=== PATIENT | female | born 1975 | race Hispanic/Latino ===

== ENCOUNTER 2018-12-02 18:37 | Emergency (ER) | payer BC, SELFPAY ==
[2018-12-02] MEDS ORDERED: Lidocaine 1% w/Epinephrine 1:100K 20 ML VIAL ONE (22:42)
== END 2018-12-02 23:27 | disposition home or self-care (01) ==
LOC: ERS 18:37
DX: L02.212 Cutaneous abscess of back [any part, except buttock and flank] (principal); E66.9 Obesity, unspecified; I10 Essential (primary) hypertension; Z79.899 Other long term (current) drug therapy
CPT/HCPCS: 10061; 87070; 87077; 87186; 87205; J2001

== ENCOUNTER 2018-12-25 03:06 | Inpatient (IN) | payer SELFPAY ==
[2018-12-25 03:45] LABS: Base Excess-Venous -4.9 mmol/L (-2.0 to 3.0); CO2 Tension (PvCO2) 41.1 mmHg (40.0-50.0); Calcium, Ionized 1.03 mmol/L (See Comments:); Chloride 87 mmol/L (98-107); Hemoglobin - Calc 12.8 g/dL (12.0-16.0); O2 Tension (PvO2) 48.4 mmHg (35.0-45.0); Potassium 3.9 mmol/L (3.5-5.1); Sodium 120 mmol/L (138-145); T. Carbon Dioxide 22.3 mmol/L (22.0-28.0); pH (Venous) 7.317 (7.320-7.430); vO2 Saturation-calc 80.4 % (60.0-85.0)
[2018-12-25] MEDS ORDERED: Ondansetron PF 4 MG/2 ML Vial ONE (04:09)
[2018-12-25 04:11] LABS: ALT (SGPT) 21 U/L (8-55); AST (SGOT) 24 U/L (5-34); Albumin 2.5 g/dL (3.5-5.0); Alkaline Phosphatase 107 U/L (40-150); Anion Gap 21 mmol/L (10-20); BUN (Urea Nitrogen) 41 mg/dL (7.0-18.7); Bilirubin, Total 0.6 mg/dL (0.2-1.2); Calc. Creatinine Clearance 0 mL/min (70-130); Calcium 7.7 mg/dL (7.8-10.44); Carbon Dioxide 21 mmol/L (22-29); Chloride 85 mmol/L (98-107); Estimated GFR-MDRD 27; Globulin 2.6 g/dL (2.4-3.5); Potassium 4.3 mmol/L (3.5-5.1); Protein, Total 5.1 g/dL (6.0-8.3); Sodium 123 mmol/L (136-145)
[2018-12-25 04:13] LABS: Band 39 % (5-11); Hemoglobin 11.6 g/dL (12.0-16.0); Lymphocytes 2 % (21-51); MDiff Complete? YES; Mean Corpuscular HGB CONC 32.9 g/dL (32.0-36.0); Mean Corpuscular Hemoglobin 29.7 pg (27.0-31.0); Mean Corpuscular Volume 90.3 fL (78.0-98.0); Mean Platelet Volume 8.8 fL (7.4-10.4); Metamyelocyte 1 % (0-0); Monocytes 2 % (0-10); Neutrophil 56 % (42-75); Platelet Count 115 thou/uL (130-400); Platelet Morphology Comment Appears Decreased; RBC Distribution Width 11.6 % (11.5-14.5); Red Blood Cell (RBC) Count 3.91 mill/uL (4.20-5.40); White Blood Cell (WBC) Count 11.3 thou/uL (4.8-10.8)
[2018-12-25 04:14] LABS: Glucose 682 mg/dL (70-105)
[2018-12-25] MEDS ORDERED: Calcium Gluc 4.6 MEQ/10 ML (100 MG/ML) ONE ×2 (04:27→04:43)
[2018-12-25 06:02] LABS: Phosphorus 3.2 mg/dL (2.3-4.7)
[2018-12-25 06:04] LABS: Magnesium 1.5 mg/dL (1.6-2.6)
[2018-12-25] MEDS ORDERED: Magnesium 2 GM/50 ML BAG (IN WATER) ONE (06:56)
[2018-12-25] MEDS ORDERED: HUMULIN R 100 UNITS in Sodium Chloride 0.9% 100 ML IVPB SCH ×2 (07:30→09:30)
--- NOTE | 2018-12-25 08:32 | RAD ---
CHEST 1 VIEW: INDICATION: Dizziness and vomiting. COMPARISON: Prior exam dated 04/19/2004. IMPRESSION: There is mild cardiomegaly and pulmonary vascular congestion. No consolidation or pleural effusion i s evident. No pneumothorax. Cardiomegaly with mild pulmonary vascular congestion. POS: BH
[2018-12-25] MEDS ORDERED: Benzonatate 100 MG CAP PO PRN (09:00)
[2018-12-25] MEDS ORDERED: Acetaminophen 325 MG TAB PO PRN (09:00)
[2018-12-25] MEDS ORDERED: Artificial Tears 18 DROP/0.9 ML EA EYE PRN (09:00)
[2018-12-25] MEDS ORDERED: Calcium Carbonate 500 MG ChewTAB PO PRN (09:00)
[2018-12-25] MEDS ORDERED: Bisacodyl 5 MG TAB PO PRN (09:00)
[2018-12-25] MEDS ORDERED: Bisacodyl 10 MG SUPP PR PRN (09:00)
[2018-12-25 09:02] VITALS: BMI 53.0
[2018-12-25 09:09] LABS: Anion Gap 15 mmol/L (10-20); BUN (Urea Nitrogen) 42 mg/dL (7.0-18.7); Calc. Creatinine Clearance 73 mL/min (70-130); Calcium 8.2 mg/dL (7.8-10.44); Carbon Dioxide 22 mmol/L (22-29); Chloride 87 mmol/L (98-107); Estimated GFR-MDRD 25; Potassium 4.8 mmol/L (3.5-5.1)
[2018-12-25 09:17] LABS: Glucose 678 mg/dL (70-105); Sodium 119 mmol/L (136-145)
[2018-12-25] MEDS ORDERED: Sodium Chloride 0.9% 1,000 ML IV PRN ×4 (09:30)
[2018-12-25] MEDS ORDERED: Ondansetron PF 4 MG/2 ML Vial IVP PRN (09:30)
[2018-12-25] MEDS ORDERED: hydrALAZINE 20 MG/ML VIAL SLOW IVP PRN (09:30)
[2018-12-25] MEDS ORDERED: HYDROcodone/Acetaminophen 5/325 mg Tablet PO PRN (09:30)
[2018-12-25] MEDS ORDERED: Loratadine 10 MG TAB PO PRN (09:30)
[2018-12-25] MEDS ORDERED: Ondansetron ODT 4 MG TAB PO PRN (09:30)
[2018-12-25] MEDS ORDERED: Famotidine/PF 20 mg/2ml Vial SLOW IVP SCH (09:30)
[2018-12-25] MEDS ORDERED: Diabetic Tussin 200 MG/10 ML UDCUP PO PRN (09:30)
[2018-12-25] MEDS ORDERED: Zolpidem Tartrate 5 MG TAB PO PRN (09:30)
[2018-12-25] MEDS ORDERED: Senokot S 8.6-50 MG TAB PO PRN (09:30)
[2018-12-25] MEDS ORDERED: NS 0.9% w/ 20 MEQ KCL 1,000 ML IV PRN (09:30)
[2018-12-25] MEDS ORDERED: Metoclopramide HCl 10 MG/2 ML VIAL IVP PRN (09:30)
[2018-12-25] MEDS ORDERED: Eucerin (Mineral Oil/Petrolatum,White) 30 gm Jar TOP PRN (09:30)
[2018-12-25] MEDS ORDERED: Cepastat Lozenges 1 LOZ PO PRN (09:30)
[2018-12-25] MEDS ORDERED: D5 1/2 NS w/20 mEq KCL 1,000 ML IV PRN (09:30)
[2018-12-25] MEDS ORDERED: Dextrose 5 %-0.45 % NaCl 1,000 ML IV PRN (09:30)
[2018-12-25] MEDS ORDERED: Sodium Chloride 0.65% Nasal 44 ML BOT EA NARE PRN (09:30)
[2018-12-25] MEDS ORDERED: Magnesium Sulfate 3 GM in Sodium Chloride 0.9% 100 ML IVPB SCH (10:00)
[2018-12-25] MEDS ORDERED: Dextrose 5% in Water 1,000 ML IV PRN ×2 (10:05→16:22)
[2018-12-25] MEDS ORDERED: Dextrose 50% Abboject 50 ML SYRINGE IVP PRN (10:05)
[2018-12-25] MEDS: Famotidine 20 MG TAB PO SCH (10:21)
[2018-12-25] MEDS: Aspirin Chewable 81 MG TAB PO SCH (10:21)
[2018-12-25] MEDS: cefTRIAXone\\ROCEPHIN 1 GM in Sodium Chloride 0.9% 100 ML IVPB SCH (10:22)
[2018-12-25] MEDS: Enoxaparin Sodium 30 MG/0.3 ML SYRINGE SC SCH (10:25)
[2018-12-25 10:45] LABS: CKMB 2.7 ng/mL (0-6.6)
[2018-12-25] MEDS: NS 0.9% w/ 20 MEQ KCL 1,000 ML IV PRN ×2 (10:54→13:06)
--- NOTE | 2018-12-25 13:05 | HP ---
PRIMARY CARE PHYSICIAN: [facility]. REASON FOR ADMISSION: hyperglycemia with DKA, acute kidney failure. HISTORY OF PRESENT ILLNESS: A 43-year-old female, who has underlying morbid obesity. She has diabetes, type 2. She lost her insurance, and she was not taking any medication for about a month. The patient reports that 3 days ago, she ate some old food, which she made it, but it was pretty much old, and after eating that foot, she noticed that she was having nausea, vomiting, abdominal discomfort, and 1-day diarrhea, which was liquidy. She did not have any blood in her stool. She did not have any fever or chills, but she was feeling weak and dizzy. She rested at home. Today, the patient was feeling more weak, fatigued, and tired, and that is why she decided to come to emergency room for evaluation. The patient reports that for last 3 days, she was not able to eat, but she was only drinking water. In the emergency room today, she was evaluated, and she was found with hyperglycemia. She had bandemia. She has pseudohyponatremia, and she has elevated troponin. This patient denies any chest pain or palpitation. She denies any UTI symptoms. She denies any fever, chills, or sore throat. She denies any flu-like illness. She denies any recent antibiotic exposure. In the emergency room, the patient was given fluid, and the patient was started on insulin drip. Subsequently, the patient was admitted to [facility]. In the emergency room, the patient was having difficulty with IV access. PAST MEDICAL HISTORY: Morbid obesity and diabetes, type 2. PAST SURGICAL HISTORY: Dilatation and curettage x2. PAST PSYCHIATRIC HISTORY: Reviewed and negative. SOCIAL HISTORY: The patient currently denies any tobacco, alcohol, or illicit drug abuse. She reports that she recently started working and she got job. She lives at home by herself. FAMILY HISTORY: Diabetes runs among several family members. ALLERGIES: NO KNOWN DRUG ALLERGIES. CURRENT HOME MEDICATIONS: The patient is not taking any prescribed or non-prescribed medication. EMERGENCY ROOM COURSE: The patient is given IV fluid 2 L, Zofran 4 mg, calcium gluconate 1 mg, magnesium sulfate 2 g, and insulin drip was started. REVIEW OF SYSTEMS: CONSTITUTIONAL: Negative for weight loss or gain, ability to conduct usual activities. SKIN: Negative for rash, itching. EYES: Negative for double vision, pain. ENT/MOUTH: Negative for nose bleeding, neck stiffness, pain, tenderness. CARDIOVASCULAR: Negative for palpitations, dyspnea on exertion, orthopnea. RESPIRATORY: Negative for shortness of breath, wheezing, cough, hemoptysis, fever or night sweats. GASTROINTESTINAL: Negative for poor appetite, abdominal pain, heartburn, nausea , vomiting, constipation, or diarrhea. GENITOURINARY: Negative for urgency, frequency, dysuria, nocturia. MUSCULOSKELETAL: Negative for pain, swelling. NEUROLOGIC/PSYCHIATRIC: Negative for anxiety, depression. ALLERGY/IMMUNOLOGIC: Negative for skin rash, bleeding tendency. PHYSICAL EXAMINATION: VITAL SIGNS: On arrival, blood pressure 92/56, pulse 88, respiratory rate 22, temperature 98.4, saturation 99% on room air. Weight 138 kg. GENERAL: The patient is currently alert, awake, morbidly obese, in no obvious acute distress. HEENT: Head, normocephalic and atraumatic. Eyes; pupils are round and reactive to light. Extraocular muscle is intact. ENT; dry-appearing mucous membrane. No oral lesion. No pharyngeal erythema. No exudate. NECK: Supple. No thyromegaly. No carotid bruit. No jugular venous distention. LUNGS: Clear to auscultation without any rhonchi or rales. CARDIAC: S1 and S2, regular. No murmur. No gallop. No rub. ABDOMEN: Morbid obesity limiting examination, but no gross tenderness noted. No organomegaly. No mass. No suprapubic tenderness. BACK: Unremarkable. No CVA tenderness. EXTREMITIES: Upper extremities; passive movement of all joints is normal. Lower extremities; trace lower extremity edema noted. No calf tenderness. Good distal pulsation. SKIN: No skin rash. HEMATOLOGICAL SYSTEM: No lymphadenopathy. NEUROLOGIC: Grossly nonfocal examination. She moves all 4 limbs. Plantar bilateral flexor. SIGNIFICANT LABORATORY DATA: CBC; WBC 11.3, hemoglobin 11.6, platelet 115, bandemia. VBG; pH 7.31, CO2 of 41.1, bicarb 21.0. BMP; sodium 123, potassium 4.3, chloride 85, BUN 41, creatinine 2.01, glucose 682, anion gap 21, calcium 7.7, magnesium 1.5, phosphorus 3.2. LFT; AST 24, ALT 21, alkaline phosphatase 107, albumin 2.5, lipase 5. CK-MB 2.0, troponin 0.055. Beta-hydroxybutyrate 3.78. ASSESSMENT AND PLAN: 1. Diabetic ketoacidosis. This patient has elevated serum ketones along with elevated anion gap and metabolic acidosis consistent with diabetic ketoacidosis. This patient was not taking any insulin for about 1 month and her recent episode of gastroenteritis precipitated her diabetic ketoacidosis. She will be admitted to [facility], and she will be treated with diabetic ketoacidosis protocol treatment. We will start insulin drip. Monitor Accu-Chek every hourly until blood sugar goes below 250. At that point, we will change IV fluid from NS to dextrose with NS and continue insulin drip until serum ketones disappear. We will replace electrolytes accordingly. While in the hospital, we will monitor BMP and serum ketones every 4 hourly. When anion gap resolves and blood sugar better controlled, at that point, we will start insulin long-acting and overlap with insulin drip, and subsequently then, we will consider transfer to medical floor. We will adjust insulin dose while in the hospital. We will check hemoglobin A1c. We will repeat labs tomorrow. We will provide diabetic diet. Dietitian will be consulted. This patient will need medication assistance with Resource Team. 2. Hyponatremia. This patient has pseudohyponatremia. When corrected with blood sugar, her sodium is 129 to 130. Her hyponatremia is also related with osmotic diuresis and her recent nausea, vomiting, diarrhea, and only free water intake. We will monitor BMP and address appropriately. We will check TSH, random cortisol , and osmolality. 3. Acute kidney failure, likely due to prerenal etiology. We will continue with IV fluid and will repeat BMP tomorrow. We will avoid nephrotoxins agent. 4. Abnormal electrolytes. The patient has pseudohyponatremia. She has hypomagnesemia, that we will replace with magnesium sulfate. 5. Elevated troponin, likely due to demand ischemia. We will do serial cardiac enzyme x3. We will start aspirin 81 mg p.o. daily, and we will check lipid profile tomorrow. 6. Hypoalbuminemia. We will check random protein/creatinine ratio to rule out nephrotic syndrome. 7. Pancytopenia with bandemia. We will repeat CBC tomorrow. We will likely relate it with stress response or we will start empirically Rocephin 1 g q.24 hours. We will check urinalysis and urine culture. 8. Morbid obesity with BMI 53. Dietary education given. Weight loss education given. 9. Deep venous thrombosis prophylaxis. Lovenox 30 mg subcutaneously daily. 10. Gastrointestinal prophylaxis. Pepcid 20 mg p.o. or IV b.i.d. CODE STATUS: The patient is full code. The patient does not have any surrogate decision maker. DISPOSITION PLAN: Based on clinical course, we are expecting the patient's stay in hospital more than 2 midnights. Plan of care discussed with the patient in detail. Job ID: [id number] [facility]
[2018-12-25 13:32] LABS: Bilirubin Moderate (Negative); Blood, Urine Moderate (Negative); Clarity TURBID (Clear); Glucose, Urine (Dipstick) 500 mg/dL (Negative); Leukocyte Negative (Negative); Nitrite Negative (Negative); Protein, Urine (Dipstick) 300 mg/dL (Neg-Trace); Specific Gravity, Urine 1.019 (1.002-1.036)
[2018-12-25 13:36] LABS: Bacteria/HPF 1+ HPF (None Seen); Pathc Cast-AUWi Flag 1.63 (0-2.49)
[2018-12-25 13:57] LABS: Anion Gap 16 mmol/L (10-20); BUN (Urea Nitrogen) 42 mg/dL (7.0-18.7); Calc. Creatinine Clearance 80 mL/min (70-130); Calcium 8.2 mg/dL (7.8-10.44); Carbon Dioxide 21 mmol/L (22-29); Chloride 94 mmol/L (98-107); Estimated GFR-MDRD 28; Glucose 224 mg/dL (70-105); Potassium 4.4 mmol/L (3.5-5.1); Sodium 127 mmol/L (136-145)
[2018-12-25 14:07] LABS: Hyaline Casts/LPF 0-3 HYALINE CAST LPF (0-3 Hyaline)
[2018-12-25] MEDS ORDERED: Dextrose 5 % And 0.9 % NaCl 1,000 ML IV SCH (16:15)
[2018-12-25] MEDS ORDERED: Insulin Glargine 20 UNITS in Pre-Filled Syringe 1 EACH SC SCH (16:30)
--- NOTE | 2018-12-25 16:59 | CON ---
DATE OF CONSULTATION: 12/25/2018 SERVICE: Pulmonary Medicine. REASON FOR CONSULTATION: ICU patient. HISTORY OF PRESENT ILLNESS: The patient is a 43-year-old morbidly obese white female, who was in her usual state of health until Sunday. At that time, she reheated 3-day-old rice and meat. Roughly an hour and a half later, she had violent nausea and vomiting. A couple of hours later, she was having profuse frequent watery diarrhea. Ultimately, she got lightheaded and weak and presented to the emergency department. She was discovered to have elevated blood sugars. She has had diabetes for quite some time, but has only been on oral medications for this. Since being in the hospital, she has been put on an insulin drip and adequately fluid resuscitated. Her dizziness seems to be improving, but her blood pressures remain marginal. Her heart rate has settled down very nicely. She has not had any high fevers, chest pain, cough, sputum production, or dyspnea on exertion beyond baseline. Multiple features consistent with obstructive sleep apnea, which may warrant outpatient investigation. PAST MEDICAL HISTORY: 1. Type 2 diabetes mellitus. 2. Morbid obesity. PAST SURGICAL HISTORY: D and C x2. SOCIAL HISTORY: Negative for alcohol, tobacco, or illicit drug use. She has no exposure to chemicals, dust, asbestos, or tuberculosis. FAMILY HISTORY: Noncontributory. ALLERGIES: NO KNOWN DRUG ALLERGIES. MEDICATIONS: List of her inpatient medications was reviewed. No specific updates were made at this time. REVIEW OF SYSTEMS: General, head, ears, eyes, nose, throat, cardiovascular, respiratory, GI, , musculoskeletal, neurologic, and skin are negative except as mentioned in the HPI. PHYSICAL EXAMINATION: VITAL SIGNS: Afebrile, pulse 90, blood pressure 95/61, respirations 21, and saturation 93% on room air. GENERAL: The patient is awake and alert, in no apparent distress. LUNGS: Excellent air entry. Dependent crackles are minimal. No prolonged expiratory phase or wheezing is appreciated. HEART: Normal rate and regular. ABDOMEN: Soft, nontender, and nondistended. Bowel sounds are positive. MUSCULOSKELETAL: No cyanosis or clubbing. There is 1 to 2+ pitting in the bilateral lower extremities. NEUROLOGIC: Grossly nonfocal. LABORATORY DATA: WBC 11.3, hemoglobin 11.6, platelets 115,000. Band count is 39% on top of 56% neutrophils. A pH 7.317, pCO2 of 41. Creatinine 1.96, which is gently downtrending from 2.15. This is well above her baseline that we are aware of from a year ago of 0.7. BUN 42, bicarb 21, chloride 94. Sodium 127 and gently up-trending. Blood sugar ranges from 152 to greater than 550 on multiple sticks. Urine protein is 300, glucose 500, moderate amount of blood is present with both red blood cells and white blood cells identified. That being said, urine bacteria is only 1+. Beta-hydroxybutyrate is 0.20. IMAGING STUDIES: Chest x-ray demonstrates cardiomegaly, pulmonary vascular congestion. Low lung volumes are present, which accentuate our interstitial markings. There is an underpenetrated film. That being said to get the sense that the patient has an enlarged heart. Cephalization is also noted. ASSESSMENT: 1. Acute hypoxic respiratory failure. 2. Starvation ketosis. 3. Type 2 diabetes mellitus. 4. Gastroenteritis. 5. Hyponatremia. 6. Acute kidney injury. DISCUSSION AND PLAN: Echocardiogram will be performed. We will drop her IV fluids down to maintenance doses. Her anion gap has improved and her bicarb is also improved. As such, we can likely deescalate her insulin drip. Cultures will be followed and empiric antibiotics will be continued for the time being. Pulmonary/ Critical Care will continue to follow along. My suspicion is that she will be stable for transition out of the IMCU in the morning. 70 minutes have been devoted to this patient in various activities. I personally reviewed all imaging studies and laboratory data noted within this document. For fifty percent of this time, I was interacting with the patient at the bedside or coordinating care with the care team. For the remainder of the time I was immediately available to the patient in the hospital unit. Job ID: [id number] [facility]
[2018-12-25] MEDS: Dextrose 5 % And 0.9 % NaCl 1,000 ML IV SCH (17:06)
[2018-12-25] MEDS: HumaLOG 300 UNITS/3 ML VIAL SC SCH (17:08)
[2018-12-25] MEDS: HumaLOG 300 UNITS/3 ML VIAL SC PRN (20:11)
[2018-12-25] MEDS: Piperacillin/Tazobactam 4.5 GM in Sodium Chloride 0.9% 100 ML IVPB SCH (23:31)
[2018-12-26 04:52] LABS: Hemoglobin A1c 14.8 % (4.0-6.0)
[2018-12-26 05:10] LABS: ALT (SGPT) 28 U/L (8-55); AST (SGOT) 36 U/L (5-34); Albumin 2.3 g/dL (3.5-5.0); Alkaline Phosphatase 156 U/L (40-150); Anion Gap 14 mmol/L (10-20); BUN (Urea Nitrogen) 48 mg/dL (7.0-18.7); Bilirubin, Total 0.5 mg/dL (0.2-1.2); Calc. Creatinine Clearance 77 mL/min (70-130); Calcium 8.1 mg/dL (7.8-10.44); Carbon Dioxide 21 mmol/L (22-29); Cardiac Risk 12.5 (Less than 4.5); Chloride 95 mmol/L (98-107); Cholesterol 162 mg/dl (< 200 Desired); Estimated GFR-MDRD 26; Globulin 3.4 g/dL (2.4-3.5); Glucose 251 mg/dL (70-105); HDL Cholesterol 13 mg/dL (>60 Neg Risk); LDL Cholesterol, Calculated 88 mg/dL; Magnesium 2.5 mg/dL (1.6-2.6); Phosphorus 4.3 mg/dL (2.3-4.7); Potassium 4.3 mmol/L (3.5-5.1); Protein, Total 5.7 g/dL (6.0-8.3); Sodium 126 mmol/L (136-145); Triglycerides 307 mg/dL (Less than 150)
[2018-12-26 05:19] LABS: Band 8 % (5-11); Hemoglobin 11.3 g/dL (12.0-16.0); Hypochromia SLIGHT = 6-15 cells (100X) (0-5/hpf); Lymphocytes 5 % (21-51); MDiff Complete? YES; Mean Corpuscular HGB CONC 32.3 g/dL (32.0-36.0); Mean Corpuscular Hemoglobin 29.7 pg (27.0-31.0); Mean Corpuscular Volume 92.1 fL (78.0-98.0); Mean Platelet Volume 9.2 fL (7.4-10.4); Monocytes 1 % (0-10); Neutrophil 86 % (42-75); Nucleated RBC 1 % (0); Platelet Count 111 thou/uL (130-400); Platelet Morphology Comment Appears Adequate; RBC Distribution Width 12.1 % (11.5-14.5); Red Blood Cell (RBC) Count 3.79 mill/uL (4.20-5.40); White Blood Cell (WBC) Count 9.5 thou/uL (4.8-10.8)
[2018-12-26] MEDS: HumaLOG 300 UNITS/3 ML VIAL SC PRN ×3 (06:43→16:34)
[2018-12-26] MEDS: HumaLOG 300 UNITS/3 ML VIAL SC SCH ×3 (07:05→16:34)
[2018-12-26] MEDS: Dextrose 5 % And 0.9 % NaCl 1,000 ML IV SCH (07:06)
[2018-12-26] MEDS: Famotidine 20 MG TAB PO SCH (08:57)
[2018-12-26] MEDS: Aspirin Chewable 81 MG TAB PO SCH (09:01)
[2018-12-26] MEDS: Enoxaparin Sodium 30 MG/0.3 ML SYRINGE SC SCH (09:01)
[2018-12-26] MEDS: cefTRIAXone\\ROCEPHIN 1 GM in Sodium Chloride 0.9% 100 ML IVPB SCH (09:01)
[2018-12-26] MEDS: Insulin Glargine 20 UNITS in Pre-Filled Syringe 1 EACH SC SCH (09:01)
[2018-12-26] MEDS: Piperacillin/Tazobactam 4.5 GM in Sodium Chloride 0.9% 100 ML IVPB SCH (10:31)
--- NOTE | 2018-12-26 11:20 | PDOC.PN ---
- Subjective Encounter Start Date: 12/26/18 Encounter Start Time: 09:30 -: old records requested/rev Patient seen and examined. No new complaints. No overnight events - Objective Resuscitation Status - Order Detail: 12/25/18 06:43 Resuscitation Status Routine Resuscitation Status: FULL: Full Resuscitation MAR Reviewed: Yes Vital Signs & Weight: Vital Signs (12 hours) Temp Pulse Ox 12/26/18 10:36 96.6 F L 12/26/18 07:17 100 12/26/18 07:11 97.9 F 12/26/18 04:12 98.5 F 12/26/18 00:14 98.6 F 12/26/18 00:00 93 L Weight Weight 309 lb 1 oz Most Recent Monitor Data Heart Rate from ECG 78 NIBP 124/83 NIBP BP-Mean 96 Respiration from ECG 23 SpO2 100 I&O: 12/25/18 12/26/18 12/27/18 06:59 06:59 06:59 Intake Total 5564.7 Output Total 350 Balance 5214.7 Result Diagrams: 12/26/18 03:59 12/26/18 03:59 Additional Labs: Accuchecks 12/26/18 12/26/18 12/25/18 10:25 06:10 19:15 POC Glucose 277 H 295 H 240 H 12/25/18 12/25/18 12/25/18 16:08 15:07 14:02 POC Glucose 137 H 152 H 197 H 12/25/18 12/25/18 12/25/18 13:01 12:01 08:47 POC Glucose 253 H 388 H Greater than 550 H* 12/25/18 12/25/18 03:25 03:23 POC Glucose Greater than 550 H* Greater than 550 H* EKG Reviewed by me: Yes Phys Exam - Physical Examination Constitutional: NAD HEENT: PERRLA, moist MMs, sclera anicteric Neck: no JVD, supple Respiratory: no wheezing, no rales, no rhonchi Cardiovascular: RRR, no significant murmur, no rub Gastrointestinal: soft, non-tender, no distention, positive bowel sounds morbid obesity+ Musculoskeletal: pulses present, edema present Neurological: non-focal, normal sensation Lymphatic: no nodes Psychiatric: normal affect, A&O x 3 Skin: no rash, normal turgor Dx/Plan (1) Abnormal blood electrolyte level Code(s): E87.8 - OT DISORDERS OF ELECTROLYTE AND FLUID BALANCE, NEC Status: Acute (2) Acute kidney failure Status: Acute (3) Bacteremia, escherichia coli Code(s): R78.81 - BACTEREMIA Status: Acute (4) Bandemia Code(s): D72.825 - BANDEMIA Status: Acute (5) DKA (diabetic ketoacidoses) Code(s): E13.10 - OTH DIABETES MELLITUS WITH KETOACIDOSIS WITHOUT COMA Status : Acute (6) Sepsis with acute organ dysfunction Code(s): A41.9 - SEPSIS, UNSPECIFIED ORGANISM; R65.20 - SEVERE SEPSIS WITHOUT SEPTIC SHOCK Status: Acute (7) Thrombocytopenia Code(s): D69.6 - THROMBOCYTOPENIA, UNSPECIFIED Status: Acute (8) Anemia, normocytic normochromic Code(s): D64.9 - ANEMIA, UNSPECIFIED Status: Chronic (9) Diabetes type 2, uncontrolled Code(s): E11.65 - TYPE 2 DIABETES MELLITUS WITH HYPERGLYCEMIA Status: Chronic (10) Morbid obesity with BMI of 50.0-59.9, adult Code(s): E66.01 - MORBID (SEVERE) OBESITY DUE TO EXCESS CALORIES; Z68.43 - BODY MASS INDEX (BMI) 50-59.9, ADULT Status: Chronic (11) Noncompliance with diabetes treatment Code(s): Z91.19 - PATIENT'S NONCOMPLIANCE W OT MEDICAL TREATMENT AND REGIMEN Status: Chronic - Plan cont current plan of care, continue antibiotics * transfer to medical * continue rocephin and add levaquin * will continue to adjust insulin dose * medication reviewed as below * symptomatic treatment * repeat labs tomorrow. Review of Systems - Review of Systems ENT: negative: Ear Pain, Ear Discharge, Nose Pain, Nose Discharge, Nose Congestion, Mouth Pain, Mouth Swelling, Throat Pain, Throat Swelling, Other Respiratory: negative: Cough, Dry, Shortness of Breath, Hemoptysis, SOB with Excertion, Pleuritic Pain, Sputum, Wheezing Cardiovascular: negative: chest pain, palpitations, orthopnea, paroxysmal nocturnal dyspnea, edema, light headedness, other Gastrointestinal: negative: Nausea, Vomiting, Abdominal Pain, Diarrhea, Constipation, Melena, Hematochezia, Other Genitourinary: negative: Dysuria, Frequency, Incontinence, Hematuria, Retention , Other Musculoskeletal: negative: Neck Pain, Shoulder Pain, Arm Pain, Back Pain, Hand Pain, Leg Pain, Foot Pain, Other Skin: negative: Rash, Lesions, Rudy, Bruising, Other - Medications/Allergies Allergies/Adverse Reactions: Allergies Allergy/AdvReac Type Severity Reaction Status Date / Time No Known Allergies Allergy Verified 12/25/18 09:08 Medications: Current Medications Acetaminophen (Tylenol) 650 mg PO Q4H PRN PRN Reason: Headache/Fever/Mild Pain (1-3) Last Admin: 12/25/18 21:08 Dose: 650 mg Hydrocodone Bitart/Acetaminophen (Duck 5/325) 1 tab PO Q4H PRN PRN Reason: Moderate Pain (4-6) Artificial Tears (Tears Naturale) 2 drop EA EYE PRN PRN PRN Reason: Dry Eyes Aspirin (Aspirin Chewable) 81 mg PO DAILY [facility] Last Admin: 12/26/18 09:01 Dose: 81 mg Bisacodyl (Dulcolax) 10 mg PO DAILYPRN PRN PRN Reason: Constipation Bisacodyl (Dulcolax) 10 mg [place] DAILYPRN PRN PRN Reason: Constipation Calcium Carbonate (Tums) 1,000 mg PO Q4H PRN PRN Reason: Heartburn or Indigestion Dextrose/Water (Dextrose 50%) 25 gm IVP PRN PRN PRN Reason: HYPOGLYCEMIA PROTOCOL Enoxaparin Sodium (Lovenox) 30 mg SC 0930 [facility] Last Admin: 12/26/18 09:01 Dose: 30 mg Famotidine (Pepcid) 20 mg PO DAILY [facility] Last Admin: 12/26/18 08:57 Dose: 20 mg Glucagon (Glucagon) 1 mg IM PRN PRN PRN Reason: HYPOGLYCEMIA PROTOCOL Guaifenesin (Robitussin Sf) 200 mg PO Q4H PRN PRN Reason: Cough Hydralazine HCl (Apresoline) 10 mg SLOW IVP Q4H PRN PRN Reason: SBP > 180 and HR < 70 Ceftriaxone Sodium 1 gm/ (Sodium Chloride) 100 mls @ 200 mls/hr IVPB Q24HR [facility] Last Admin: 12/26/18 09:01 Dose: 100 mls Dextrose/Water (D5w) 1,000 mls @ 0 mls/hr IV INF PRN PRN Reason: HYPOGLYCEMIA PROTOCOL Insulin Glargine 20 units/ (Miscellaneous Medication) 0.2 mls @ 0 mls/hr SC DAILY [facility] Last Admin: 12/26/18 09:01 Dose: 0.2 mls Dextrose/Water (D5w) 1,000 mls @ 0 mls/hr IV .Q0M PRN PRN Reason: Hypoglycemia Levofloxacin 750 mg/ Device 150 mls @ 100 mls/hr IVPB Q2DAYS [facility] Last Admin: 12/26/18 09:02 Dose: 150 mls Insulin Human Lispro (Humalog) 5 units SC AC [facility] Last Admin: 12/26/18 07:05 Dose: 5 unit Insulin Human Lispro (Humalog) 0 units SC .MODERATE SLIDING SC PRN PRN Reason: Moderate Correctional Scale Last Admin: 12/26/18 06:43 Dose: 6 units Loperamide HCl (Imodium) 2 mg PO PRN PRN PRN Reason: Diarrhea/Loose Stools Loratadine (Claritin) 10 mg PO DAILYPRN PRN PRN Reason: Sinus Symptoms Metoclopramide HCl (Reglan) 5 mg IVP Q4H PRN PRN Reason: Nausea Mineral Oil/White Petrolatum (Eucerin Cream) 0 gm TOP BIDPRN PRN PRN Reason: Dry Skin Ondansetron HCl (Zofran Odt) 4 mg PO Q6H PRN PRN Reason: Nausea/Vomiting Ondansetron HCl (Zofran) 4 mg IVP Q6H PRN PRN Reason: Nausea/Vomiting Last Admin: 12/25/18 14:00 Dose: 4 mg Senna/Docusate Sodium (Senokot S) 2 tab PO BID PRN PRN Reason: Constipation Sodium Chloride ([place] Nasal Riparius 0.65%) 0 ml EA NARE QIDPRN PRN PRN Reason: Nasal Congestion Sodium Chloride (Flush - Normal Saline) 10 ml IVF Q12HR [facility] Last Admin: 12/26/18 09:02 Dose: 10 ml Sodium Chloride (Flush - Normal Saline) 10 ml IVF PRN PRN PRN Reason: Saline Flush Throat Lozenges (Cepastat Lozenges) 1 gretchen PO Q2H PRN PRN Reason: Sore Throat Zolpidem Tartrate (Ambien) 5 mg PO HSPRN PRN PRN Reason: Insomnia
[2018-12-26] MEDS: Loperamide HCl 2 MG CAP PO PRN (12:41)
[2018-12-26 14:08] LABS: Creatinine, Urine 91.75 mg/dL (47-110)
[2018-12-26] MEDS ORDERED: Furosemide 40 MG/4 ML VIAL SLOW IVP SCH (17:00)
--- NOTE | 2018-12-26 17:16 | PRG ---
DATE OF SERVICE: 12/26/2018 SERVICE: Pulmonary Medicine. INTERVAL HISTORY: The patient is doing really well from respiratory standpoint. Breathing comfortably. Denies any nausea, vomiting, or diarrhea today. She is not having any shortness of breath or increased work of breathing. PHYSICAL EXAMINATION: VITAL SIGNS: Afebrile with a T-max of 102.2 overnight. Pulse 79, blood pressure 122/87, respirations 18, and saturation 93% on 2 L nasal cannula. GENERAL: The patient is awake and alert, in no apparent distress. LUNGS: Decent air entry. There is no prolonged expiratory phase. Dependent crackles are noted. HEART: Normal rate. Regular. ABDOMEN: Soft, nontender, and nondistended. Bowel sounds are positive. MUSCULOSKELETAL: No cyanosis or clubbing. There is 2+ pitting in bilateral lower extremities. NEUROLOGIC: Grossly nonfocal. LABORATORY DATA: WBC 9.5, hemoglobin 11.3, and platelets 111,000. Creatinine 2.04 and roughly stable. Basic metabolic profile is otherwise unremarkable. Sodium 126 and roughly stable. Liver function studies are unremarkable. Hemoglobin A1c 15 , glucose ranges from 251 to 277. TSH falls within normal limits. Urinalysis is positive for minimal white blood cells, blood, glucose, and proteinuria. Beta hydroxybutyrate has resolved. Gram-negative rods are growing in 2/2 blood cultures. One is growing E. coli. Urine cultures negative to-date. ASSESSMENT: 1. Severe sepsis. 2. Bacteremia secondary to E. coli. 3. Acute hypoxic respiratory failure, improving. 4. Starvation ketosis, resolved. 5. Type 2 diabetes mellitus. 6. Gastroenteritis. 7. Hyponatremia, chronic. 8. Acute kidney injury. DISCUSSION AND PLAN: We will continue our antibiotics. Antibiotics will be directed ultimately, at our sensitivities to the E. coli. We will provide a dose of Lasix on a daily basis. At this point, she is stable for transition out of the ICU to the medical unit. Pulmonary/Critical Care will continue to follow along for now. Job ID: [id number] [facility]
[2018-12-27 06:40] LABS: #Eosinphils 0.1 thou/uL (0.0-0.7); #Monocytes 0.8 thou/uL (0.11-0.59); #Neutrophils 5.6 thou/uL (1.40-6.50); %Basophils 0.3 % (0.0-1.0); %Lymphocytes 12.8 % (21.0-51.0); %Monocytes 10.7 % (0.0-10.0); %Neutrophils 75.1 % (42.0-75.0); Hemoglobin 10.7 g/dL (12.0-16.0); Mean Corpuscular HGB CONC 32.8 g/dL (32.0-36.0); Mean Corpuscular Hemoglobin 29.5 pg (27.0-31.0); Mean Platelet Volume 9.4 fL (7.4-10.4); Platelet Count 118 thou/uL (130-400); RBC Distribution Width 12.2 % (11.5-14.5); Red Blood Cell (RBC) Count 3.61 mill/uL (4.20-5.40); White Blood Cell (WBC) Count 7.4 thou/uL (4.8-10.8)
[2018-12-27 06:55] LABS: ALT (SGPT) 36 U/L (8-55); AST (SGOT) 34 U/L (5-34); Albumin 2.4 g/dL (3.5-5.0); Alkaline Phosphatase 227 U/L (40-150); Anion Gap 13 mmol/L (10-20); BUN (Urea Nitrogen) 54 mg/dL (7.0-18.7); Bilirubin, Total 0.4 mg/dL (0.2-1.2); Calc. Creatinine Clearance 74 mL/min (70-130); Calcium 8.4 mg/dL (7.8-10.44); Carbon Dioxide 21 mmol/L (22-29); Chloride 96 mmol/L (98-107); Estimated GFR-MDRD 25; Globulin 3.6 g/dL (2.4-3.5); Glucose 165 mg/dL (70-105); Sodium 126 mmol/L (136-145)
[2018-12-27] MEDS: Aspirin Chewable 81 MG TAB PO SCH (08:29)
[2018-12-27] MEDS: Famotidine 20 MG TAB PO SCH (08:29)
[2018-12-27] MEDS: Furosemide 40 MG/4 ML VIAL SLOW IVP SCH (08:29)
[2018-12-27] MEDS: cefTRIAXone\\ROCEPHIN 1 GM in Sodium Chloride 0.9% 100 ML IVPB SCH (08:29)
[2018-12-27] MEDS: Enoxaparin Sodium 30 MG/0.3 ML SYRINGE SC SCH (08:29)
[2018-12-27] MEDS: Insulin Glargine 20 UNITS in Pre-Filled Syringe 1 EACH SC SCH (08:30)
[2018-12-27] MEDS: HumaLOG 300 UNITS/3 ML VIAL SC SCH ×3 (08:30→17:21)
--- NOTE | 2018-12-27 09:16 | PDOC.PN ---
- Subjective Encounter Start Date: 12/27/18 Encounter Start Time: 07:40 Patient seen and examined. No new complaints. No overnight events - Objective Resuscitation Status - Order Detail: 12/25/18 06:43 Resuscitation Status Routine Resuscitation Status: FULL: Full Resuscitation MAR Reviewed: Yes Vital Signs & Weight: Vital Signs (12 hours) Temp Pulse Resp BP BP Pulse Ox 12/27/18 08:23 97.7 F 76 18 111/73 99 12/27/18 04:00 97.5 F L 74 18 106/71 94 L 12/27/18 00:00 98.1 F 75 20 118/82 99 Weight Weight 309 lb 1 oz Most Recent Monitor Data Heart Rate from ECG 78 NIBP 111/71 NIBP BP-Mean 84 Respiration from ECG 23 SpO2 100 I&O: 12/26/18 12/27/18 12/28/18 06:59 06:59 06:59 Intake Total 5564.7 1320 Output Total 350 200 Balance 5214.7 1120 Result Diagrams: 12/27/18 06:18 12/27/18 06:18 Additional Labs: Accuchecks 12/27/18 12/27/18 12/27/18 08:36 04:14 02:20 POC Glucose 189 H 157 H 174 H 12/26/18 12/26/18 12/26/18 21:54 20:20 16:05 POC Glucose 142 H 192 H 261 H 12/26/18 10:25 POC Glucose 277 H Phys Exam - Physical Examination Constitutional: NAD HEENT: PERRLA, moist MMs, sclera anicteric Neck: no JVD, supple Respiratory: no wheezing, no rales, no rhonchi Cardiovascular: RRR, no significant murmur, no rub Gastrointestinal: soft, non-tender, no distention, positive bowel sounds morbid obesity+ Musculoskeletal: pulses present, edema present edema trace Neurological: non-focal, normal sensation, moves all 4 limbs Lymphatic: no nodes Psychiatric: normal affect, A&O x 3 Dx/Plan (1) Abnormal blood electrolyte level Code(s): E87.8 - OTH DISORDERS OF ELECTROLYTE AND FLUID BALANCE, NEC Status: Acute (2) Acute kidney failure Status: Acute (3) Bacteremia, escherichia coli Code(s): R78.81 - BACTEREMIA Status: Acute (4) Bandemia Code(s): D72.825 - BANDEMIA Status: Acute (5) DKA (diabetic ketoacidoses) Code(s): E13.10 - OTH DIABETES MELLITUS WITH KETOACIDOSIS WITHOUT COMA Status : Acute (6) Sepsis with acute organ dysfunction Code(s): A41.9 - SEPSIS, UNSPECIFIED ORGANISM; R65.20 - SEVERE SEPSIS WITHOUT SEPTIC SHOCK Status: Acute (7) Thrombocytopenia Code(s): D69.6 - THROMBOCYTOPENIA, UNSPECIFIED Status: Acute (8) Anemia, normocytic normochromic Code(s): D64.9 - ANEMIA, UNSPECIFIED Status: Chronic (9) Diabetes type 2, uncontrolled Code(s): E11.65 - TYPE 2 DIABETES MELLITUS WITH HYPERGLYCEMIA Status: Chronic (10) Morbid obesity with BMI of 50.0-59.9, adult Code(s): E66.01 - MORBID (SEVERE) OBESITY DUE TO EXCESS CALORIES; Z68.43 - BODY MASS INDEX (BMI) 50-59.9, ADULT Status: Chronic (11) Noncompliance with diabetes treatment Code(s): Z91.19 - PATIENT'S NONCOMPLIANCE W OT MEDICAL TREATMENT AND REGIMEN Status: Chronic - Plan cont current plan of care, continue antibiotics, out of bed/ambulate * her renal function has not improved, ? ATN * will consult nephrology * medication reviewed as below * symptomatic treatment * continue current IV rocephin and levaquin * adjust insulin dose. Review of Systems - Review of Systems ENT: negative: Ear Pain, Ear Discharge, Nose Pain, Nose Discharge, Nose Congestion, Mouth Pain, Mouth Swelling, Throat Pain, Throat Swelling, Other Respiratory: negative: Cough, Dry, Shortness of Breath, Hemoptysis, SOB with Excertion, Pleuritic Pain, Sputum, Wheezing Cardiovascular: negative: chest pain, palpitations, orthopnea, paroxysmal nocturnal dyspnea, edema, light headedness, other Gastrointestinal: negative: Nausea, Vomiting, Abdominal Pain, Diarrhea, Constipation, Melena, Hematochezia, Other Genitourinary: negative: Dysuria, Frequency, Incontinence, Hematuria, Retention , Other Musculoskeletal: negative: Neck Pain, Shoulder Pain, Arm Pain, Back Pain, Hand Pain, Leg Pain, Foot Pain, Other Skin: negative: Rash, Lesions, Rudy, Bruising, Other - Medications/Allergies Allergies/Adverse Reactions: Allergies Allergy/AdvReac Type Severity Reaction Status Date / Time No Known Allergies Allergy Verified 12/25/18 09:08 Medications: Current Medications Acetaminophen (Tylenol) 650 mg PO Q4H PRN PRN Reason: Headache/Fever/Mild Pain (1-3) Last Admin: 12/25/18 21:08 Dose: 650 mg Hydrocodone Bitart/Acetaminophen ([place] 5/325) 1 tab PO Q4H PRN PRN Reason: Moderate Pain (4-6) Artificial Tears (Tears Naturale) 2 drop EA EYE PRN PRN PRN Reason: Dry Eyes Aspirin (Aspirin Chewable) 81 mg PO DAILY [facility] Last Admin: 12/27/18 08:29 Dose: 81 mg Bisacodyl (Dulcolax) 10 mg PO DAILYPRN PRN PRN Reason: Constipation Bisacodyl (Dulcolax) 10 mg [place] DAILYPRN PRN PRN Reason: Constipation Calcium Carbonate (Tums) 1,000 mg PO Q4H PRN PRN Reason: Heartburn or Indigestion Dextrose/Water (Dextrose 50%) 25 gm IVP PRN PRN PRN Reason: HYPOGLYCEMIA PROTOCOL Enoxaparin Sodium (Lovenox) 30 mg SC 0930 [facility] Last Admin: 12/27/18 08:29 Dose: 30 mg Famotidine (Pepcid) 20 mg PO DAILY [facility] Last Admin: 12/27/18 08:29 Dose: 20 mg Furosemide (Lasix) 40 mg SLOW IVP DAILY [facility] Last Admin: 12/27/18 08:29 Dose: 40 mg Glucagon (Glucagon) 1 mg IM PRN PRN PRN Reason: HYPOGLYCEMIA PROTOCOL Guaifenesin (Robitussin Sf) 200 mg PO Q4H PRN PRN Reason: Cough Hydralazine HCl (Apresoline) 10 mg SLOW IVP Q4H PRN PRN Reason: SBP > 180 and HR < 70 Ceftriaxone Sodium 1 gm/ (Sodium Chloride) 100 mls @ 200 mls/hr IVPB Q24HR [facility] Last Admin: 12/27/18 08:29 Dose: 100 mls Dextrose/Water (D5w) 1,000 mls @ 0 mls/hr IV INF PRN PRN Reason: HYPOGLYCEMIA PROTOCOL Insulin Glargine 20 units/ (Miscellaneous Medication) 0.2 mls @ 0 mls/hr SC DAILY [facility] Last Admin: 03/29/19 08:30 Dose: 0.2 mls Dextrose/Water (D5w) 1,000 mls @ 0 mls/hr IV .Q0M PRN PRN Reason: Hypoglycemia Levofloxacin 750 mg/ Device 150 mls @ 100 mls/hr IVPB Q2DAYS [facility] Last Admin: 12/26/18 09:02 Dose: 150 mls Insulin Human Lispro (Humalog) 5 units SC AC [facility] Last Admin: 12/27/18 08:30 Dose: 5 unit Insulin Human Lispro (Humalog) 0 units SC .MODERATE SLIDING SC PRN PRN Reason: Moderate Correctional Scale Last Admin: 12/26/18 16:34 Dose: 6 units Loperamide HCl (Imodium) 2 mg PO PRN PRN PRN Reason: Diarrhea/Loose Stools Last Admin: 12/26/18 12:41 Dose: 2 mg Loratadine (Claritin) 10 mg PO DAILYPRN PRN PRN Reason: Sinus Symptoms Metoclopramide HCl (Reglan) 5 mg IVP Q4H PRN PRN Reason: Nausea Mineral Oil/White Petrolatum (Eucerin Cream) 0 gm TOP BIDPRN PRN PRN Reason: Dry Skin Ondansetron HCl (Zofran Odt) 4 mg PO Q6H PRN PRN Reason: Nausea/Vomiting Ondansetron HCl (Zofran) 4 mg IVP Q6H PRN PRN Reason: Nausea/Vomiting Last Admin: 12/25/18 14:00 Dose: 4 mg Senna/Docusate Sodium (Senokot S) 2 tab PO BID PRN PRN Reason: Constipation Sodium Chloride ([place] Nasal [place] 0.65%) 0 ml EA NARE QIDPRN PRN PRN Reason: Nasal Congestion Sodium Chloride (Flush - Normal Saline) 10 ml IVF Q12HR [facility] Last Admin: 12/27/18 08:31 Dose: 10 ml Sodium Chloride (Flush - Normal Saline) 10 ml IVF PRN PRN PRN Reason: Saline Flush Throat Lozenges (Cepastat Lozenges) 1 gretchen PO Q2H PRN PRN Reason: Sore Throat Zolpidem Tartrate (Ambien) 5 mg PO HSPRN PRN PRN Reason: Insomnia
[2018-12-27] MEDS: Loperamide HCl 2 MG CAP PO PRN (12:54)
--- NOTE | 2018-12-27 13:55 | CON ---
DATE OF CONSULTATION: REASON FOR CONSULTATION: Elevated creatinine. HISTORY OF PRESENT ILLNESS: This is a very pleasant 43-year-old female, who was admitted for dehydration, nausea, and vomiting. Her baseline creatinine was 0.73 in the last year, which increased to 2.0 today. The patient uses some NSAIDs. Denies any nausea, vomiting, or chest pain. PAST MEDICAL HISTORY: Significant for obesity, hypertension, and diabetes mellitus. PAST SURGICAL HISTORY: D and C. SOCIAL HISTORY: No alcohol use. FAMILY HISTORY: Negative for ESRD. ALLERGIES: REVIEWED. HOME MEDICATION: List reviewed. REVIEW OF SYSTEMS: 15-point review of system was performed and negative except for what was noted above. GENERAL: HEAD: NECK: No swelling or lumps. NOSE: No epistaxis or discharge. EYES: No diplopia or pain. RESPIRATORY: CARDIOVASCULAR: GASTROINTESTINAL: /ORTHOTIST: MUSCULOSKELETAL: No joint pain. NEUROPSYCHIATRIC SYSTEMS: No suicidal ideation. No ideation. SKIN: Denies any rash or ulcer. CONSTITUTIONAL: No fever or chills. PHYSICAL EXAMINATION: GENERAL: The patient is awake and alert. VITAL SIGNS: Pulse 82, breathing 16, and blood pressure 111/73. GENERAL APPEARANCE AND MENTAL STATUS: Fair. HEAD/NECK: Normocephalic. Atraumatic. EYES: EOMI. No deformity. EARS: Clear. No ulcers. NOSE: Intact. No lesions. MOUTH: Clear. No discharge. THROAT: Clear. No exudate. LUNGS: Clear. No crackles. CARDIAC: S1, S2. No rub. ABDOMEN: Benign. Bowel sounds positive. GENITALIA/RECTUM: Siu absent. BACK/EXTREMITIES: Edema 0+. NEUROLOGICAL: Alert and motor intact. SKIN: LYMPHATICS: LABORATORY DATA: Labs show creatinine 2.1. ASSESSMENT: 1. Chronic kidney disease, stage 4, because of diabetes mellitus and morbid obesity. Continue hydration. 2. Congestive heart failure, stable. 3. Anemia, stable. 4. Medication based on GFR appropriate. No indication for dialysis at this time. The patient has proteinuria, which indicates chronic kidney disease. Job ID: [id number]
--- NOTE | 2018-12-27 15:00 | PRG ---
DATE OF SERVICE: 12/27/2018 SERVICE: Pulmonary Medicine. INTERVAL HISTORY: The patient is doing really well from respiratory standpoint. Breathing comfortably. Otherwise, there has been no interval change to her condition. I woke her up from a deep sleep. She did have witnessed apnea by me. This occurred when she was sleeping in a chair. That being said, she woke up comfortably and was fully conversive without any difficulties in breathing. PHYSICAL EXAMINATION: VITAL SIGNS: Afebrile. Pulse 82, blood pressure 150/95, respirations 18, saturation 92% on room air. GENERAL: The patient is awake and alert, in no apparent distress. LUNGS: Decent air entry. There is some minimal dependent crackles present. Mildly prolonged expiratory phase, but no polyphonic wheezing or rhonchi appreciated. HEART: Normal rate and regular. ABDOMEN: Soft, nontender, nondistended. Bowel sounds are positive. MUSCULOSKELETAL: No cyanosis or clubbing. No pitting in the bilateral lower extremities. NEUROLOGIC: Grossly nonfocal. LABORATORY DATA: WBC 7.4, hemoglobin 10.7, platelets 118,000 and roughly stable. Creatinine 2.12 and roughly stable, BUN 54. Bicarb 21, is stable; anion gap 13. Sodium 126, is also stable. Liver function studies are otherwise unremarkable. E coli is growing in 2/2 blood cultures. This is sensitive to Levaquin, Cipro, as well as third-generation cephalosporins. IMAGING: Echocardiogram demonstrates a normal ejection fraction. Enlarged right ventricular cavity is noted. Left atrium is moderately dilated. Moderately elevated pulmonary artery pressures are noted. ASSESSMENT: 1. Severe sepsis, resolving. 2. Bacteremia secondary to Escherichia coli. 3. Acute hypoxic respiratory failure, improving. 4. Starvation ketosis, resolved. 5. Type 2 diabetes mellitus. 6. Gastroenteritis, resolved. 7. Acute kidney injury. 8. Obstructive sleep apnea, witnessed at bedside. DISCUSSION AND PLAN: I will continue her antibiotics and other supportive measures. The patient remains volume overloaded. We will continue to diurese her as tolerated. That being said, since she does not have respiratory issues, we do not need to push her too hard. She will need an outpatient evaluation for sleep apnea if it can be arranged. That being said, her lack of funding is going to prove very challenging in this. At this point, Pulmonary will sign off. Please call with additional questions or concerns through time. Job ID: [id number] [facility]
[2018-12-27] MEDS: HumaLOG 300 UNITS/3 ML VIAL SC PRN (17:21)
[2018-12-28] MEDS: Loperamide HCl 2 MG CAP PO PRN (04:37)
[2018-12-28] MEDS: HumaLOG 300 UNITS/3 ML VIAL SC PRN ×2 (04:41→13:01)
[2018-12-28] MEDS: Famotidine 20 MG TAB PO SCH (08:30)
[2018-12-28] MEDS: Aspirin Chewable 81 MG TAB PO SCH (08:30)
[2018-12-28] MEDS: Furosemide 40 MG/4 ML VIAL SLOW IVP SCH (08:30)
[2018-12-28] MEDS: Insulin Glargine 20 UNITS in Pre-Filled Syringe 1 EACH SC SCH (08:30)
--- NOTE | 2018-12-28 10:27 | PDOC.PN ---
- Subjective Encounter Start Date: 12/28/18 Encounter Start Time: 08:40 Patient seen and examined. No new complaints. No overnight events - Objective Resuscitation Status - Order Detail: 12/25/18 06:43 Resuscitation Status Routine Resuscitation Status: FULL: Full Resuscitation MAR Reviewed: Yes Vital Signs & Weight: Vital Signs (12 hours) Temp Pulse Resp BP Pulse Ox 12/28/18 08:00 97.5 F L 81 18 142/83 H 93 L Weight Weight 309 lb 1 oz Most Recent Monitor Data Heart Rate from ECG 78 NIBP 111/71 NIBP BP-Mean 84 Respiration from ECG 23 SpO2 100 I&O: 12/27/18 12/28/18 12/29/18 06:59 06:59 06:59 Intake Total 1320 Output Total 200 Balance 1120 Result Diagrams: 12/27/18 06:18 12/27/18 06:18 Additional Labs: Accuchecks 12/28/18 12/27/18 12/27/18 04:42 20:03 17:20 POC Glucose 193 H 195 H 222 H 12/27/18 11:05 POC Glucose 204 H Phys Exam - Physical Examination Constitutional: NAD HEENT: PERRLA, moist MMs, sclera anicteric Neck: no JVD, supple Respiratory: no wheezing, no rales, no rhonchi Cardiovascular: RRR, no significant murmur, no rub Gastrointestinal: soft, non-tender, no distention, positive bowel sounds Musculoskeletal: no edema, pulses present Neurological: non-focal, normal sensation, moves all 4 limbs Lymphatic: no nodes Psychiatric: normal affect, A&O x 3 Skin: no rash, normal turgor Dx/Plan (1) Abnormal blood electrolyte level Code(s): E87.8 - OTH DISORDERS OF ELECTROLYTE AND FLUID BALANCE, NEC Status: Acute (2) Acute kidney failure Status: Acute (3) Bacteremia, escherichia coli Code(s): R78.81 - BACTEREMIA Status: Acute (4) Bandemia Code(s): D72.825 - BANDEMIA Status: Acute (5) DKA (diabetic ketoacidoses) Code(s): E13.10 - OTH DIABETES MELLITUS WITH KETOACIDOSIS WITHOUT COMA Status : Acute (6) Sepsis with acute organ dysfunction Code(s): A41.9 - SEPSIS, UNSPECIFIED ORGANISM; R65.20 - SEVERE SEPSIS WITHOUT SEPTIC SHOCK Status: Acute (7) Thrombocytopenia Code(s): D69.6 - THROMBOCYTOPENIA, UNSPECIFIED Status: Acute (8) Anemia, normocytic normochromic Code(s): D64.9 - ANEMIA, UNSPECIFIED Status: Chronic (9) Diabetes type 2, uncontrolled Code(s): E11.65 - TYPE 2 DIABETES MELLITUS WITH HYPERGLYCEMIA Status: Chronic (10) Morbid obesity with BMI of 50.0-59.9, adult Code(s): E66.01 - MORBID (SEVERE) OBESITY DUE TO EXCESS CALORIES; Z68.43 - BODY MASS INDEX (BMI) 50-59.9, ADULT Status: Chronic (11) Noncompliance with diabetes treatment Code(s): Z91.19 - PATIENT'S NONCOMPLIANCE W OTH MEDICAL TREATMENT AND REGIMEN Status: Chronic - Plan cont current plan of care, continue antibiotics * add florastor 250 mg po daily * continue current iv antibiotics * medication reviewed as below * symptomatic treatment. Review of Systems - Review of Systems ENT: negative: Ear Pain, Ear Discharge, Nose Pain, Nose Discharge, Nose Congestion, Mouth Pain, Mouth Swelling, Throat Pain, Throat Swelling, Other Respiratory: negative: Cough, Dry, Shortness of Breath, Hemoptysis, SOB with Excertion, Pleuritic Pain, Sputum, Wheezing Cardiovascular: negative: chest pain, palpitations, orthopnea, paroxysmal nocturnal dyspnea, edema, light headedness, other Gastrointestinal: Diarrhea. negative: Nausea, Vomiting, Abdominal Pain, Constipation, Melena, Hematochezia, Other Genitourinary: negative: Dysuria, Frequency, Incontinence, Hematuria, Retention , Other Musculoskeletal: negative: Neck Pain, Shoulder Pain, Arm Pain, Back Pain, Hand Pain, Leg Pain, Foot Pain, Other - Medications/Allergies Allergies/Adverse Reactions: Allergies Allergy/AdvReac Type Severity Reaction Status Date / Time No Known Allergies Allergy Verified 12/25/18 09:08 Medications: Current Medications Acetaminophen (Tylenol) 650 mg PO Q4H PRN PRN Reason: Headache/Fever/Mild Pain (1-3) Last Admin: 12/25/18 21:08 Dose: 650 mg Hydrocodone Bitart/Acetaminophen ([place] 5/325) 1 tab PO Q4H PRN PRN Reason: Moderate Pain (4-6) Artificial Tears (Tears Naturale) 2 drop EA EYE PRN PRN PRN Reason: Dry Eyes Aspirin (Aspirin Chewable) 81 mg PO DAILY [facility] Last Admin: 12/28/18 08:30 Dose: 81 mg Bisacodyl (Dulcolax) 10 mg PO DAILYPRN PRN PRN Reason: Constipation Bisacodyl (Dulcolax) 10 mg [place] DAILYPRN PRN PRN Reason: Constipation Calcium Carbonate (Tums) 1,000 mg PO Q4H PRN PRN Reason: Heartburn or Indigestion Dextrose/Water (Dextrose 50%) 25 gm IVP PRN PRN PRN Reason: HYPOGLYCEMIA PROTOCOL Enoxaparin Sodium (Lovenox) 30 mg SC 0930 [facility] Last Admin: 12/27/18 08:29 Dose: 30 mg Famotidine (Pepcid) 20 mg PO DAILY [facility] Last Admin: 12/28/18 08:30 Dose: 20 mg Furosemide (Lasix) 40 mg SLOW IVP DAILY [facility] Last Admin: 12/28/18 08:30 Dose: 40 mg Glucagon (Glucagon) 1 mg IM PRN PRN PRN Reason: HYPOGLYCEMIA PROTOCOL Guaifenesin (Robitussin Sf) 200 mg PO Q4H PRN PRN Reason: Cough Hydralazine HCl (Apresoline) 10 mg SLOW IVP Q4H PRN PRN Reason: SBP > 180 and HR < 70 Ceftriaxone Sodium 1 gm/ (Sodium Chloride) 100 mls @ 200 mls/hr IVPB Q24HR [facility] Last Admin: 12/27/18 08:29 Dose: 100 mls Dextrose/Water (D5w) 1,000 mls @ 0 mls/hr IV INF PRN PRN Reason: HYPOGLYCEMIA PROTOCOL Insulin Glargine 20 units/ (Miscellaneous Medication) 0.2 mls @ 0 mls/hr SC DAILY [facility] Last Admin: 12/28/18 08:30 Dose: 0.2 mls Dextrose/Water (D5w) 1,000 mls @ 0 mls/hr IV .Q0M PRN PRN Reason: Hypoglycemia Levofloxacin 750 mg/ Device 150 mls @ 100 mls/hr IVPB Q2DAYS [facility] Last Admin: 12/26/18 09:02 Dose: 150 mls Insulin Human Lispro (Humalog) 5 units SC AC [facility] Last Admin: 12/27/18 17:21 Dose: 5 unit Insulin Human Lispro (Humalog) 0 units SC .MODERATE SLIDING SC PRN PRN Reason: Moderate Correctional Scale Last Admin: 12/28/18 04:41 Dose: 2 units Loperamide HCl (Imodium) 2 mg PO PRN PRN PRN Reason: Diarrhea/Loose Stools Last Admin: 12/28/18 04:37 Dose: 2 mg Loratadine (Claritin) 10 mg PO DAILYPRN PRN PRN Reason: Sinus Symptoms Metoclopramide HCl (Reglan) 5 mg IVP Q4H PRN PRN Reason: Nausea Mineral Oil/White Petrolatum (Eucerin Cream) 0 gm TOP BIDPRN PRN PRN Reason: Dry Skin Ondansetron HCl (Zofran Odt) 4 mg PO Q6H PRN PRN Reason: Nausea/Vomiting Ondansetron HCl (Zofran) 4 mg IVP Q6H PRN PRN Reason: Nausea/Vomiting Last Admin: 12/25/18 14:00 Dose: 4 mg Saccharomyces Boulardii (Florastor) 250 mg PO NOW [facility] Stop: 12/28/18 12:30 Saccharomyces Boulardii (Florastor) 250 mg PO DAILY [facility] Senna/Docusate Sodium (Senokot S) 2 tab PO BID PRN PRN Reason: Constipation Sodium Chloride ([place] Nasal [place] 0.65%) 0 ml EA NARE QIDPRN PRN PRN Reason: Nasal Congestion Sodium Chloride (Flush - Normal Saline) 10 ml IVF Q12HR [facility] Last Admin: 12/27/18 20:55 Dose: 10 ml Sodium Chloride (Flush - Normal Saline) 10 ml IVF PRN PRN PRN Reason: Saline Flush Throat Lozenges (Cepastat Lozenges) 1 gretchen PO Q2H PRN PRN Reason: Sore Throat Zolpidem Tartrate (Ambien) 5 mg PO HSPRN PRN PRN Reason: Insomnia
[2018-12-28] MEDS ORDERED: Saccharomyces boulardii 250 MG CAP PO SCH (10:30)
[2018-12-28] MEDS: Enoxaparin Sodium 30 MG/0.3 ML SYRINGE SC SCH (10:53)
[2018-12-28] MEDS: cefTRIAXone\\ROCEPHIN 1 GM in Sodium Chloride 0.9% 100 ML IVPB SCH (10:54)
[2018-12-28] MEDS: HumaLOG 300 UNITS/3 ML VIAL SC SCH ×3 (10:56→17:13)
[2018-12-28 11:36] LABS: Anion Gap 17 mmol/L (10-20); BUN (Urea Nitrogen) 56 mg/dL (7.0-18.7); Calc. Creatinine Clearance 86 mL/min (70-130); Calcium 8.9 mg/dL (7.8-10.44); Carbon Dioxide 17 mmol/L (22-29); Chloride 101 mmol/L (98-107); Estimated GFR-MDRD 30; Glucose 308 mg/dL (70-105); Potassium 5.1 mmol/L (3.5-5.1); Sodium 130 mmol/L (136-145)
--- NOTE | 2018-12-28 12:17 | PRG ---
DATE OF SERVICE: 12/28/2018 SUBJECTIVE: This is a 43-year-old female, being seen for acute kidney injury. The patient denied any nausea, vomiting, or chest pain. OBJECTIVE: CONSTITUTIONAL: The patient is awake and alert. VITAL SIGNS: breathing 16, blood pressure 124/88. GENERAL APPEARANCE AND MENTAL STATUS: Fair. HEAD/NECK: Normocephalic. Atraumatic. EYES: EOMI. No deformity. EARS: Clear. No ulcers. NOSE: Intact. No lesions. MOUTH: Clear. No discharge. THROAT: Clear. No exudate. LUNGS: Clear. No crackles. CARDIAC: S1, S2. No rub. ABDOMEN: Benign. Bowel sounds positive. GENITALIA/RECTUM: Siu absent. BACK/EXTREMITIES: Edema 0+. NEUROLOGICAL: Alert and motor intact. SKIN: LYMPHATICS: LABORATORY DATA: Creatinine is pending. ASSESSMENT AND PLAN: 1. Chronic kidney disease, stage 4. We will recheck labs today. 2. Hypertension, stable. 3. Anemia, stable. 4. Medication based on GFR appropriate. Job ID: [id number]
[2018-12-29 07:29] LABS: Anion Gap 13 mmol/L (10-20); BUN (Urea Nitrogen) 48 mg/dL (7.0-18.7); Calc. Creatinine Clearance 102 mL/min (70-130); Calcium 8.4 mg/dL (7.8-10.44); Carbon Dioxide 22 mmol/L (22-29); Chloride 101 mmol/L (98-107); Estimated GFR-MDRD 36; Glucose 199 mg/dL (70-105); Potassium 4.4 mmol/L (3.5-5.1); Sodium 132 mmol/L (136-145)
[2018-12-29] MEDS: HumaLOG 300 UNITS/3 ML VIAL SC SCH (07:58)
[2018-12-29] MEDS: Furosemide 40 MG/4 ML VIAL SLOW IVP SCH (07:58)
[2018-12-29] MEDS: Aspirin Chewable 81 MG TAB PO SCH (07:59)
[2018-12-29] MEDS: cefTRIAXone\\ROCEPHIN 1 GM in Sodium Chloride 0.9% 100 ML IVPB SCH (07:59)
[2018-12-29] MEDS: Enoxaparin Sodium 30 MG/0.3 ML SYRINGE SC SCH (07:59)
[2018-12-29] MEDS: Famotidine 20 MG TAB PO SCH (07:59)
[2018-12-29 08:02] LABS: Band 14 % (5-11); Eosinophils 5 % (0-10); Hemoglobin 11.8 g/dL (12.0-16.0); Lymphocytes 17 % (21-51); MDiff Complete? YES; Mean Corpuscular HGB CONC 33.2 g/dL (32.0-36.0); Mean Corpuscular Hemoglobin 29.5 pg (27.0-31.0); Mean Corpuscular Volume 88.8 fL (78.0-98.0); Mean Platelet Volume 7.8 fL (7.4-10.4); Metamyelocyte 5 % (0-0); Monocytes 10 % (0-10); Myelocyte 2 % (0-0); Neutrophil 47 % (42-75); Platelet Count 228 thou/uL (130-400); RBC Distribution Width 12.2 % (11.5-14.5); Toxic Granulation SLIGHT; White Blood Cell (WBC) Count 10.9 thou/uL (4.8-10.8)
[2018-12-29 08:27] VITALS: BP 154/81; TEMP 97.5
[2018-12-29] MEDS ORDERED: Saccharomyces boulardii 250 MG CAP PO SCH (09:00)
[2018-12-29] MEDS: Insulin Glargine 20 UNITS in Pre-Filled Syringe 1 EACH SC SCH (10:27)
--- NOTE | 2018-12-29 10:27 | DIS ---
DATE OF ADMISSION: 12/25/2018 DATE OF DISCHARGE: 12/29/2018 PRIMARY CARE PHYSICIAN: [facility] Call Admission. DISCHARGE DISPOSITION: Home. PRIMARY DISCHARGE DIAGNOSES: 1. Diabetes ketoacidosis. 2. Abnormal blood electrolytes, corrected. 3. Bacteremia due to Escherichia coli urinary tract infection due to Escherichia coli acute kidney failure. 4. Sepsis with acute organ dysfunction. SECONDARY DISCHARGE DIAGNOSES: 1. Morbid obesity with BMI of 53, noncompliance with diabetic treatment. 2. Diabetes type 2, uncontrolled. 3. Normocytic normochromic anemia. 4. Moderate tricuspid regurgitation. 5. Pulmonary hypertension. PRIMARY PROCEDURE/OPERATION: None. RADIOLOGICAL INVESTIGATION: Chest x-ray showed no acute cardiopulmonary process. Echocardiography showed moderate pulmonary hypertension and tricuspid regurgitation. SIGNIFICANT LABORATORY DATA: WBC 10.9, hemoglobin 11.8, and platelet 228. Sodium 132, potassium 4.4, BUN 48, creatinine 1.54, calcium 8.8. Urinalysis suggestive of UTI. Serum ketone 0.20. Blood culture positive for E coli. Urine culture negative. DISCHARGE MEDICATIONS: 1. Aspirin 81 mg p.o. daily. 2. Lasix 20 mg p.o. daily. 3. Humalog insulin 5 units subcu a.c. 4. Lantus insulin 25 units subcu daily. 5. Levaquin 500 mg p.o. daily. 6. Lisinopril 5 mg p.o. daily. 7. Florastor 250 mg p.o. daily. CONTRAINDICATION: None. CODE STATUS: Full code. INPATIENT CODING EDUCATOR: Dr. Kumar was following while in hospital. Dr. Mccain was consulted while in hospital. TEST RESULT PENDING ON DISCHARGE: None. ALLERGIES: NO KNOWN DRUG ALLERGIES. DISCHARGE PLAN: Posthospital, the patient will follow up with primary care physician, Dr. Mccain as instructed. HOSPITAL COURSE: A 43-year-old female with above-mentioned medical problem, who was admitted by me on 12/25/2018. Please see my HPI for further details. The patient was admitted for diabetes ketoacidosis. The patient was not taking diabetes medication about one month because of not having insurance. On admission, she had hyperglycemia and she also had ketosis and elevated anion gap acidosis. The patient was admitted to [facility], where we treated her with diabetes ketoacidosis protocol treatment. Her DKA resolved. At that point, we changed to long-acting insulin and short-acting insulin. The patient was also having bandemia and leukocytosis on admission. We suspected sepsis with acute organ dysfunction. Her blood culture was positive for E coli. Her urine culture was negative. The patient was initially treated with Rocephin and levofloxacin while in the hospital. Subsequently, we changed to levofloxacin therapy only. The patient's repeat blood culture is negative. The patient does not have any fever and she is vitals fermin stable. The patient also had acute kidney failure, which was improving with IV fluid and Nephrology was consulted. The patient was also having hypertension, edema and that is why we started Lasix and lisinopril. Dietary instruction is given. The patient education about compliance with medication is given. All new medication prescription is sent to her pharmacy. The patient is seen and examined at bedside today. Her physical examination is normal. Her vitals are stable. All new medication prescription is sent to her pharmacy. TIME SPENT: Total time spent on discharge day was 31 minutes. Job ID: [id number]
--- NOTE | 2018-12-29 10:58 | PDOC.PN ---
- Subjective Encounter Start Date: 12/29/18 Encounter Start Time: 09:10 Patient seen and examined. No new complaints. No overnight events - Objective Resuscitation Status - Order Detail: 12/25/18 06:43 Resuscitation Status Routine Resuscitation Status: FULL: Full Resuscitation MAR Reviewed: Yes Vital Signs & Weight: Vital Signs (12 hours) Temp Pulse Resp BP Pulse Ox 12/29/18 08:00 97.5 F L 71 20 154/81 H 94 L Weight Weight 309 lb 1 oz Most Recent Monitor Data Heart Rate from ECG 78 NIBP 111/71 NIBP BP-Mean 84 Respiration from ECG 23 SpO2 100 I&O: 12/28/18 12/29/18 12/30/18 06:59 06:59 06:59 Intake Total 1600 Balance 1600 Result Diagrams: 12/29/18 06:28 12/29/18 06:28 Additional Labs: Accuchecks 12/29/18 12/28/18 12/28/18 04:32 20:28 16:30 POC Glucose 199 H 169 H 117 H 12/28/18 11:15 POC Glucose 283 H Phys Exam - Physical Examination Constitutional: NAD HEENT: PERRLA, moist MMs, sclera anicteric Neck: no JVD, supple Respiratory: no wheezing, no rales, no rhonchi Cardiovascular: RRR, no significant murmur, no rub Gastrointestinal: soft, non-tender, no distention, positive bowel sounds Musculoskeletal: no edema, pulses present Neurological: non-focal, normal sensation Lymphatic: no nodes Psychiatric: normal affect, A&O x 3 Skin: no rash, normal turgor Dx/Plan (1) Abnormal blood electrolyte level Code(s): E87.8 - OTH DISORDERS OF ELECTROLYTE AND FLUID BALANCE, NEC Status: Acute (2) Acute kidney failure Status: Acute (3) Bacteremia, escherichia coli Code(s): R78.81 - BACTEREMIA Status: Acute (4) Bandemia Code(s): D72.825 - BANDEMIA Status: Acute (5) DKA (diabetic ketoacidoses) Code(s): E13.10 - OTH DIABETES MELLITUS WITH KETOACIDOSIS WITHOUT COMA Status : Acute (6) Sepsis with acute organ dysfunction Code(s): A41.9 - SEPSIS, UNSPECIFIED ORGANISM; R65.20 - SEVERE SEPSIS WITHOUT SEPTIC SHOCK Status: Acute (7) Thrombocytopenia Code(s): D69.6 - THROMBOCYTOPENIA, UNSPECIFIED Status: Acute (8) Anemia, normocytic normochromic Code(s): D64.9 - ANEMIA, UNSPECIFIED Status: Chronic (9) Diabetes type 2, uncontrolled Code(s): E11.65 - TYPE 2 DIABETES MELLITUS WITH HYPERGLYCEMIA Status: Chronic (10) Morbid obesity with BMI of 50.0-59.9, adult Code(s): E66.01 - MORBID (SEVERE) OBESITY DUE TO EXCESS CALORIES; Z68.43 - BODY MASS INDEX (BMI) 50-59.9, ADULT Status: Chronic (11) Noncompliance with diabetes treatment Code(s): Z91.19 - PATIENT'S NONCOMPLIANCE W OTH MEDICAL TREATMENT AND REGIMEN Status: Chronic - Plan cont current plan of care, continue antibiotics * medication reviewed as below * symptomatic treatment * see discharge alannah. Review of Systems - Review of Systems ENT: negative: Ear Pain, Ear Discharge, Nose Pain, Nose Discharge, Nose Congestion, Mouth Pain, Mouth Swelling, Throat Pain, Throat Swelling, Other Respiratory: negative: Cough, Dry, Shortness of Breath, Hemoptysis, SOB with Excertion, Pleuritic Pain, Sputum, Wheezing Cardiovascular: negative: chest pain, palpitations, orthopnea, paroxysmal nocturnal dyspnea, edema, light headedness, other Gastrointestinal: negative: Nausea, Vomiting, Abdominal Pain, Diarrhea, Constipation, Melena, Hematochezia, Other Genitourinary: negative: Dysuria, Frequency, Incontinence, Hematuria, Retention , Other Musculoskeletal: negative: Neck Pain, Shoulder Pain, Arm Pain, Back Pain, Hand Pain, Leg Pain, Foot Pain, Other - Medications/Allergies Allergies/Adverse Reactions: Allergies Allergy/AdvReac Type Severity Reaction Status Date / Time No Known Allergies Allergy Verified 12/25/18 09:08
--- NOTE | 2018-12-29 11:08 | PRG ---
DATE OF SERVICE: 12/29/2018 SUBJECTIVE: This is a 43-year-old female, being seen for acute kidney injury. The patient denied any nausea, vomiting, or chest pain. OBJECTIVE: CONSTITUTIONAL: The patient is awake and alert. VITAL SIGNS: Afebrile. Pulse 75, breathing 16, blood pressure 144/77. GENERAL APPEARANCE AND MENTAL STATUS: Fair. HEAD/NECK: Normocephalic. Atraumatic. EYES: EOMI. No deformity. EARS: Clear. No ulcers. NOSE: Intact. No lesions. MOUTH: Clear. No discharge. THROAT: Clear. No exudate. LUNGS: Clear. No crackles. CARDIAC: S1, S2. No rub. ABDOMEN: Benign. Bowel sounds positive. GENITALIA/RECTUM: Siu absent. BACK/EXTREMITIES: Edema 0+. NEUROLOGICAL: Alert and motor intact. SKIN: LYMPHATICS: LABORATORY DATA: Labs reviewed. ASSESSMENT AND PLAN: 1. Stage 3 chronic kidney disease, stable. 2. Acute kidney injury, resolved. 3. Hypertension, stable. 4. Anemia, stable. I will sign off on this patient. Please re-consult as needed. Job ID: [id number]
== END 2018-12-29 10:41 | disposition home or self-care (01) | DRG 871 ==
LOC: ERS 03:06 → IMCU/EMU 05:42 → T4-A 12-26 20:32
PROVIDERS: ADMIT Hospitalist; ATTEND Hospitalist
DX: A41.51 Sepsis due to Escherichia coli [E. coli] (principal); E11.10 Type 2 diabetes mellitus with ketoacidosis without coma; J96.01 Acute respiratory failure with hypoxia; N17.9 Acute kidney failure, unspecified; Z68.43 Body mass index [BMI] 50.0-59.9, adult; D61.818 Other pancytopenia; I13.0 Hypertensive heart and chronic kidney disease with heart failure and stage 1 through stage 4 chronic kidney disease, or unspecified chronic kidney disease; N39.0 Urinary tract infection, site not specified; N18.4 Chronic kidney disease, stage 4 (severe); E87.1 Hypo-osmolality and hyponatremia; R65.20 Severe sepsis without septic shock; E66.01 Morbid (severe) obesity due to excess calories; E88.09 Other disorders of plasma-protein metabolism, not elsewhere classified; E86.0 Dehydration; I50.9 Heart failure, unspecified; D63.1 Anemia in chronic kidney disease; E11.22 Type 2 diabetes mellitus with diabetic chronic kidney disease; K52.9 Noninfective gastroenteritis and colitis, unspecified; I07.1 Rheumatic tricuspid insufficiency; Z91.14 Patient's other noncompliance with medication regimen; E83.42 Hypomagnesemia; I27.20 Pulmonary hypertension, unspecified
CPT/HCPCS: 36415; 36416; 71045; 80048; 80053; 80061; 81003; 81015; 82010; 82330; 82553; 82570; 82803; 83036; 83690; 83735; 83880; 83930; 83935; 84100; 84156; 84443; 84484; 85025; 87040; 87077; 87086; 87149; 87186; 93005; 93306; 96361; 96365; 96374; 96375; 99292; J0696; J1650; J1815; J1825; J1940; J1956; J2405; J2543; J3475; J7042; J7050

== ENCOUNTER 2019-02-11 15:12 | Emergency (ER) | payer SELFPAY ==
--- NOTE | 2019-02-11 15:58 | RAD ---
EXAM: RIGHT HIP TWO VIEWS 02/11/19 HISTORY: Right hip pain following an injury from a fall. FINDINGS/IMPRESSION: Large body habitus somewhat lowers the sensitivity of this study. No acute fracture or dislocation de monstrated. POS: [facility]
[2019-02-11] MEDS ORDERED: Ketorolac Tromethamine 30 MG/ML VIAL ONE (17:32)
== END 2019-02-11 17:56 | disposition home or self-care (01) ==
LOC: ERS 15:12
DX: M25.551 Pain in right hip (principal); I10 Essential (primary) hypertension; E11.9 Type 2 diabetes mellitus without complications
CPT/HCPCS: 96372; J1885

== ENCOUNTER 2019-02-15 19:32 | Emergency (ER) | payer SELFPAY ==
[2019-02-15] MEDS ORDERED: Lidocaine 1% w/Epinephrine 1:100K 20 ML VIAL ONE (20:29)
[2019-02-15 20:41] LABS: #Eosinphils 0.3 thou/uL (0.0-0.7); #Lymphocytes 1.1 thou/uL (1.20-3.40); #Monocytes 1.2 thou/uL (0.11-0.59); #Neutrophils 9.1 thou/uL (1.40-6.50); %Basophils 0.3 % (0.0-1.0); %Eosinophils 2.1 % (0.0-10.0); %Lymphocytes 9.7 % (21.0-51.0); %Monocytes 10.3 % (0.0-10.0); %Neutrophils 77.6 % (42.0-75.0); Hemoglobin 12.5 g/dL (12.0-16.0); Mean Corpuscular Hemoglobin 28.7 pg (27.0-31.0); Mean Corpuscular Volume 89.8 fL (78.0-98.0); Platelet Count 314 thou/uL (130-400); RBC Distribution Width 12.6 % (11.5-14.5); Red Blood Cell (RBC) Count 4.34 mill/uL (4.20-5.40); White Blood Cell (WBC) Count 11.8 thou/uL (4.8-10.8)
[2019-02-15 21:05] LABS: ALT (SGPT) 8 U/L (8-55); AST (SGOT) 8 U/L (5-34); Albumin 2.8 g/dL (3.5-5.0); Alkaline Phosphatase 126 U/L (40-150); Anion Gap 12 mmol/L (10-20); BUN (Urea Nitrogen) 16 mg/dL (7.0-18.7); Bilirubin, Total 0.5 mg/dL (0.2-1.2); Calc. Creatinine Clearance 0 mL/min (70-130); Carbon Dioxide 28 mmol/L (22-29); Chloride 93 mmol/L (98-107); Estimated GFR-MDRD 51; Globulin 3.9 g/dL (2.4-3.5); Glucose 412 mg/dL (70-105); Potassium 4.1 mmol/L (3.5-5.1); Protein, Total 6.7 g/dL (6.0-8.3); Sodium 129 mmol/L (136-145)
== END 2019-02-15 21:22 | disposition home or self-care (01) ==
LOC: ERS 19:32
DX: N76.4 Abscess of vulva (principal); E11.65 Type 2 diabetes mellitus with hyperglycemia; I10 Essential (primary) hypertension; Z79.84 Long term (current) use of oral hypoglycemic drugs; Z79.899 Other long term (current) drug therapy; E66.9 Obesity, unspecified
CPT/HCPCS: 36415; 56405; 80053; 85025; J2001

== ENCOUNTER 2019-05-28 20:31 | Emergency (ER) | payer SELFPAY | END 2019-05-28 21:17 | disposition home or self-care (01) | LOC: ERS 20:31 | DX: L03.312 Cellulitis of back [any part except buttock and flank] (principal); E11.9 Type 2 diabetes mellitus without complications; I10 Essential (primary) hypertension; E66.9 Obesity, unspecified; Z79.84 Long term (current) use of oral hypoglycemic drugs | CPT/HCPCS: 99282 ==

== ENCOUNTER 2019-07-05 19:59 | Emergency (ER) | payer SELFPAY ==
[2019-07-05] MEDS ORDERED: Lidocaine 1% w/Epinephrine 1:100K 20 ML VIAL ONE (22:26)
== END 2019-07-05 23:40 | disposition home or self-care (01) ==
LOC: ERS 19:59
DX: L02.212 Cutaneous abscess of back [any part, except buttock and flank] (principal); E11.9 Type 2 diabetes mellitus without complications; I10 Essential (primary) hypertension; E66.9 Obesity, unspecified; Z79.899 Other long term (current) drug therapy
CPT/HCPCS: 10060; J2001

== ENCOUNTER 2019-08-22 11:45 | Emergency (ER) | payer SELFPAY ==
[2019-08-22] MEDS ORDERED: Insulin Regular 300 UNITS/3 ML VIAL ONE (13:27)
== END 2019-08-22 15:20 | disposition home or self-care (01) ==
LOC: ERS 11:45
DX: I10 Essential (primary) hypertension (principal); L03.113 Cellulitis of right upper limb; E11.9 Type 2 diabetes mellitus without complications; E66.9 Obesity, unspecified
CPT/HCPCS: 36416; 96360; 96361; J1815

== ENCOUNTER 2019-08-26 19:47 | Emergency (ER) | payer SELFPAY ==
--- NOTE | 2019-08-26 20:44 | RAD ---
XR Foot Lt 3 View STANDARD HISTORY: Injury, left foot pain FINDINGS: No fracture or dislocation is identified.
[2019-08-26] MEDS ORDERED: Ketorolac Tromethamine 30 MG/ML VIAL ONE (20:46)
== END 2019-08-26 21:35 | disposition home or self-care (01) ==
LOC: ERS 19:47
DX: S93.602A Unspecified sprain of left foot, initial encounter (principal); E11.9 Type 2 diabetes mellitus without complications; I10 Essential (primary) hypertension; E66.9 Obesity, unspecified; Z79.899 Other long term (current) drug therapy; Z79.84 Long term (current) use of oral hypoglycemic drugs; W18.30XA Fall on same level, unspecified, initial encounter
CPT/HCPCS: 96372; J1885

== ENCOUNTER 2020-03-04 11:24 | Outpatient (CLI) | payer OTHER ==
--- NOTE | 2020-03-04 13:55 | RAD ---
LEFT ANKLE 3 VIEWS: INDICATION: Injury with pain. FINDINGS: Soft tissue swelling at the ankle. There is a fracture of the medial malleolus without significant d isplacement apparent. IMPRESSION: Fracture medial malleolus. POS: [facility]
--- NOTE | 2020-03-04 14:01 | RAD ---
LEFT FOOT: 03/04/20 Three views. HISTORY: Injury. COMPARISON: Left foot 08/26/19. Fracture of the medial malleolus is described on ankle films. Tarsals appear intact. Degenerative changes in the intertarsal joints again noted with spurring seen dorsally. Metatarsals and phalanges appear intact. No interval change. IMPRESSION: Fracture medial malleolus as described on ankle films. No acute fracture of the foot. POS: [facility]
== END 2020-03-04 11:25 | disposition home or self-care (01) ==
LOC: BICRAD 11:24
PROVIDERS: ATTEND Nurse Practitioner Family
DX: M79.672 Pain in left foot (principal); M25.572 Pain in left ankle and joints of left foot; S82.52XA Displaced fracture of medial malleolus of left tibia, initial encounter for closed fracture